=== PATIENT | male | born 1955 | race Caucasian/White ===

== ENCOUNTER 2016-07-18 10:48 | Observation (INO) | payer BC ==
--- NOTE | 2016-07-18 11:05 | EDM.PDOC ---
ED HPI GENERAL MEDICAL PROBLEM - General Chief Complaint: General Stated Complaint: SHAKY/VOMITING/SWEATING Time Seen by Provider: 07/18/16 10:50 Source of Information: Reports: Patient History Limitations: Reports: No Limitations - History of Present Illness INITIAL COMMENTS - FREE TEXT/NARRATIVE: According to patient he woke up today morning and and started to have sudden onset of severe headache. he was not doing any strenuous activity. He started to feel nauseous and had an episode of vomiting. The headache has not got any better, and rate 10/10,. Worse headache of his life. also has been having mild neck pain. Does complaints of dizziness. No weakness in the limbs , No tingling or numbness , no slurred speech. No altered sensorium or LOC. No chest pain or Shortness of breath. No trauma or injury to the head. He was brought in by EMT, Vitals are stable and his initial blood sugar was 141 and repeat blood sugar here is 152. EKG was in normal sinus rhythm. He does have fibromyalgia and on pain medications which he has taken today.Pt' s is driving and has his med list with her. Onset: Today Onset Date: 07/18/16 Onset Time: 08:00 Duration: Getting Worse Location: Reports: Head Quality: Reports: Ache Severity: Severe Improves with: Reports: None Worsens with: Reports: None Associated Symptoms: Reports: Diaphoresis, Nausea/Vomiting. Denies: Confusion, Chest Pain, Cough, Fever/Chills, Headaches, Rash, Seizure, Shortness of Breath, Syncope, Weakness ED ROS GENERAL - Review of Systems Review Of Systems: See Below Constitutional: Reports: Diaphoresis. Denies: Fever, Chills, Weakness HEENT: Denies: Contact Lenses, Dental Pain, Rhinitis, Sinus Problem, Throat Pain Respiratory: Denies: Shortness of Breath, Cough, Sputum Cardiovascular: Denies: Chest Pain, Blood Pressure Problem, Edema, Lightheadedness GI/Abdominal: Denies: Abdominal Pain, Constipation, Diarrhea, Nausea, Vomiting Musculoskeletal: Reports: Neck Pain, Muscle Pain (chronic from fibromyalgia), Muscle Stiffness (fibromyalgia). Denies: Joint Pain, Joint Swelling Skin: Denies: Pruritis, Rash Neurological: Reports: Dizziness, Headache. Denies: Confusion, Numbness, Paresthesia, Seizure, Syncope, Tingling, Trouble Speaking, Difficulty Walking, Weakness, Change in Speech, Gait Disturbance ED EXAM, GENERAL - Physical Exam Exam: See Below Exam Limited By: No Limitations General Appearance: Alert, WD/WN, Moderate Distress, Other (diaphoretic) Eye Exam: Bilateral Eye: EOMI, Normal Inspection, PERRL Ears: Normal External Exam, Normal Canal, Hearing Grossly Normal, Normal TMs Ear Exam: Bilateral Ear: Auricle Normal, Canal Normal, TM normal Nose: Normal Inspection, Normal Mucosa, No Blood Throat/Mouth: Normal Inspection, Normal Lips, Normal Teeth, Normal Gums, Normal Oropharynx, Normal Voice, No Airway Compromise Head: Atraumatic, Normocephalic Neck: Normal Inspection, Supple, Non-Tender, Full Range of Motion, Other (No neck rigidity, able to touch his chin to chest.) Respiratory/Chest: No Respiratory Distress, Lungs Clear, Normal Breath Sounds, No Accessory Muscle Use, Chest Non-Tender Cardiovascular: Normal Peripheral Pulses, Regular Rate, Rhythm, No Edema, No Gallop, No JVD, No Murmur, No Rub GI/Abdominal: Normal Bowel Sounds, Soft, Non-Tender, No Organomegaly, No Distention, No Abnormal Bruit, No Mass Extremities: Normal Inspection, Normal Range of Motion, Non-Tender, Normal Capillary Refill, No Pedal Edema Neurological: Alert, Oriented, CN II-XII Intact, Normal Cognition, Normal Reflexes, No Motor/Sensory Deficits, Other (Negative meningeal signs. No nystagmus) Psychiatric: Anxious EKG INTERPRETATION EKG Date: 07/18/16 Time: 10:50 Rhythm: NSR [place]: normal P-wave: present QRS: normal ST-T: normal QT: normal Course - Vital Signs Text/Narrative:: Pt's vitals are stable. his SPO2 of room air is 100%. his initial blood sugar was 141. repeat was 152. Also his EKG is in normal sinus rhythm. Neuro exam appears normal. He does not have acute meningeal signs. CBC, CMP, Troponins, CT head ordered. He is anxious and slightly hyperventilating reassured him. Ct head is negative for acute bleed or subarachanoid hemorrhage. Pt is still having nausea, S/l zofran 4mg given. Also IV has been inserted. His Labs are Back His CBC and CMP appear normal. His initial troponin is Negative. and his EKG is normal. he does not have any acute cardiac symptoms, but considering that he was diaphoretic on arrival, I do want to repeat his serial troponin. His episode of headache started at 6 Am today, Will repeat troponin at 3 Pm which is good 9 hrs from the episode. I did reevaluate patient once all the lab work and reports are back. He does c/ o dizziness when he moves his head. I did do a Quick head maneuver test. he does get Short episode over vertigo with lateral movement of the head at 30 degrees, which last for 6-10 secs. It does appear very much like acute viral labrynthitis. He did receive meclizine 25mg . Will admit him for Observation. if his second set of troponin is negative will discharge patient home. - Orders/Labs/Meds Orders: Active Orders 24 hr Category Date Time Status EKG Documentation Completion [RC] ASDIRECTED Care 07/18/16 10:53 Active Head wo Cont [CT] Stat Exams 07/18/16 10:53 Taken Sodium Chloride 0.9% [Saline Flush] Med 07/18/16 11:27 Active 10 ml FLUSH ASDIRECTED PRN Saline Lock Insert [OM.PC] Routine Oth 07/18/16 11:27 Ordered Medication Orders Sodium Chloride (Saline Flush) 10 ml FLUSH ASDIRECTED PRN PRN Reason: Keep Vein Open Last Admin: 07/18/16 11:40 Dose: 10 ml Labs: Laboratory Tests 07/18/16 07/18/16 07/18/16 Range/Units 11:00 11:00 11:00 WBC 6.2 (4.0-11.0) K/uL RBC 4.17 L (4.50-6.50) M/uL Hgb 13.3 (13.0-18.0) g/dL Hct 38.3 L (40.0-54.0) % MCV 92 (76-96) fL MCH 31.9 (27.0-32.0) pg MCHC 34.7 (31.0-35.0) g/dL RDW 12.7 (11.0-16.0) % Plt Count 257 (150-400) K/uL MPV 9.8 (6.0-10.0) fL Neut % (Auto) 62.1 (45.0-70.0) % Lymph % (Auto) 26.9 (20.0-40.0) % [place] % (Auto) 7.6 (3.0-10.0) % Eos % (Auto) 3.1 (1.0-5.0) % Baso % (Auto) 0.3 (0.0-0.5) % Neut # (Auto) 3.85 (2.00-7.50) K/uL Lymph # (Auto) 1.67 (1.50-4.00) K/uL [place] # (Auto) 0.47 (0.20-0.80) K/uL Eos # (Auto) 0.19 (0.04-0.40) K/uL Baso # (Auto) 0.02 (0.02-0.10) K/uL PT 9.7 (9.0-11.5) sec INR 0.9 L (1.0-3.5) APTT 21.6 L (27.0-35.0) SECONDS Sodium 135 L (136-145) mmol/L Potassium 4.2 (3.5-5.1) mmol/L Chloride 101 (98-107) mmol/L Carbon Dioxide 25.0 (21.0-32.0) mmol/L Anion Gap 13.2 (5.0-15.0) mmol/L BUN 13 (8-26) mg/dL Creatinine 0.84 (0.70-1.30) mg/dL Est Cr Clr Drug Dosing TNP Estimated GFR (MDRD) > 60 (>60) MLS/MIN BUN/Creatinine Ratio 15.5 (6-25) Glucose 169 H (74-100) mg/dL Calcium 8.9 (8.5-10.1) mg/dL Total Bilirubin 0.5 (0.0-1.0) mg/dL AST 31 (15-37) U/L ALT 28 (12-78) U/L Alkaline Phosphatase 96 (46-116) U/L Troponin I < 0.017 (0.000-0.060) ng/mL Total Protein 7.3 (6.4-8.2) g/dL Albumin 3.8 (3.4-5.0) g/dL Globulin 3.5 (2.2-4.2) g/dL Albumin/Globulin Ratio 1.1 (0.8-2.0) Meds: Medications Generic Name Dose Route Start Last Admin Trade Name Marina PRN Reason Stop Dose Admin Sodium Chloride 10 ml 07/18/16 11:27 07/18/16 11:40 Saline Flush FLUSH 10 ml ASDIRECTED PRN Administration Keep Vein Open Discontinued Medications Generic Name Dose Route Start Last Admin Trade Name Marina PRN Reason Stop Dose Admin Hydromorphone HCl 1 mg 07/18/16 11:46 07/18/16 11:53 Dilaudid IVPUSH 07/18/16 11:47 1 mg ONETIME ONE Administration Hydromorphone HCl Confirm 07/18/16 11:48 07/18/16 11:58 Dilaudid Administered 07/18/16 11:49 Not Given Dose 2 mg .ROUTE .STK-MED ONE Meclizine HCl 25 mg 07/18/16 11:49 07/18/16 11:52 Antivert PO 07/18/16 11:50 25 mg ONETIME ONE Administration Meclizine HCl Confirm 07/18/16 11:49 07/18/16 11:58 Antivert Administered 07/18/16 11:50 Not Given Dose 25 mg .ROUTE .STK-MED ONE Ondansetron HCl Confirm 07/18/16 11:25 Zofran Odt Administered 07/18/16 11:26 Dose 4 mg .ROUTE .STK-MED ONE Ondansetron HCl 4 mg 07/18/16 11:27 Zofran Odt PO 07/18/16 11:28 ONETIME ONE Departure - Departure Time of Disposition: 12:30 Disposition: Refer to Observation Condition: good Clinical Impression: Acute labyrinthitis, Dizziness - Discharge Information Forms: ED Department Discharge - Problem List & Annotations (1) Acute labyrinthitis SNOMED Code(s): 16517839 Code(s): H83.09 - LABYRINTHITIS, UNSPECIFIED EAR Status: Acute Current Visit: Yes (2) Dizziness SNOMED Code(s): 948925978, 640219022 Code(s): R42 - DIZZINESS AND GIDDINESS Status: Acute Current Visit: Yes - Problem List Review Problem List Initiated/Reviewed/Updated: Yes - My Orders Last 24 Hours: My Active Orders 07/18/16 10:53 EKG Documentation Completion [RC] ASDIRECTED Head wo Cont [CT] Stat 07/18/16 11:27 Sodium Chloride 0.9% [Saline Flush] 10 ml FLUSH ASDIRECTED PRN Saline Lock Insert [OM.PC] Routine - Assessment/Plan Admission H&P: Please use this note as an admission H&P Last 24 Hours: My Active Orders 07/18/16 10:53 EKG Documentation Completion [RC] ASDIRECTED Head wo Cont [CT] Stat 07/18/16 11:27 Sodium Chloride 0.9% [Saline Flush] 10 ml FLUSH ASDIRECTED PRN Saline Lock Insert [OM.PC] Routine Assessment:: Acute labrynthitis with dizziness. Plan: Pt's vitals are stable. his SPO2 of room air is 100%. his initial blood sugar was 141. repeat was 152. Also his EKG is in normal sinus rhythm. Neuro exam appears normal. He does not have acute meningeal signs. CBC, CMP, Troponins, CT head ordered. He is anxious and slightly hyperventilating reassured him. Ct head is negative for acute bleed or subarachanoid hemorrhage. Pt is still having nausea, S/l zofran 4mg given. Also IV has been inserted. His Labs are Back His CBC and CMP appear normal. His initial troponin is Negative. and his EKG is normal. he does not have any acute cardiac symptoms, but considering that he was diaphoretic on arrival, I do want to repeat his serial troponin. His episode of headache started at 6 Am today, Will repeat troponin at 3 Pm which is good 9 hrs from the episode. I did reevaluate patient once all the lab work and reports are back. He does c/ o dizziness when he moves his head. I did do a Quick head maneuver test. he does get Short episode over vertigo with lateral movement of the head at 30 degrees, which last for 6-10 secs. It does appear very much like acute viral labrynthitis. He did receive meclizine 25mg . Will admit him for Observation. if his second set of troponin is negative will discharge patient home.
[2016-07-18] MEDS ORDERED: Ondansetron 4 MG Tab.DIS ONE (11:25)
[2016-07-18] MEDS ORDERED: Ondansetron 4 MG Tab.DIS PO ONE (11:27)
[2016-07-18] MEDS ORDERED: Sodium Chloride 0.9% 10 ML Syringe FLUSH PRN (11:27)
[2016-07-18] MEDS ORDERED: HYDROmorphone 2 MG/ML Syringe IVPUSH ONE (11:46)
[2016-07-18] MEDS ORDERED: HYDROmorphone 2 MG/ML Syringe ONE (11:48)
--- NOTE | 2016-07-18 14:32 | EDM.PDOC ---
ED HPI GENERAL MEDICAL PROBLEM - General Chief Complaint: General Stated Complaint: SHAKY/VOMITING/SWEATING Time Seen by Provider: 07/18/16 10:55 Source of Information: Reports: Patient History Limitations: Reports: No Limitations - History of Present Illness INITIAL COMMENTS - FREE TEXT/NARRATIVE: According to patient he woke up today morning and and started to have sudden onset of severe headache. he was not doing any strenuous activity. He started to feel nauseous and had an episode of vomiting. The headache has not got any better, and rate 10/10,. Worse headache of his life. also has been having mild neck pain. Does complaints of dizziness. No weakness in the limbs , No tingling or numbness , no slurred speech. No altered sensorium or LOC. No chest pain or Shortness of breath. No trauma or injury to the head. He was brought in by EMT, Vitals are stable and his initial blood sugar was 141 and repeat blood sugar here is 152. EKG was in normal sinus rhythm. He does have fibromyalgia and on pain medications which he has taken today.Pt' s is driving and has his med list with her. Onset: Today Onset Date: 07/18/16 Onset Time: 08:00 Duration: Getting Worse Location: Reports: Head Quality: Reports: Ache Severity: Severe Improves with: Reports: None Worsens with: Reports: None Associated Symptoms: Reports: Diaphoresis, Nausea/Vomiting. Denies: Confusion, Chest Pain, Cough, Fever/Chills, Headaches, Rash, Seizure, Shortness of Breath, Syncope, Weakness ED EXAM, GENERAL - Physical Exam Free Text/Narrative:: According to patient he woke up today morning and and started to have sudden onset of severe headache. he was not doing any strenuous activity. He started to feel nauseous and had an episode of vomiting. The headache has not got any better, and rate 10/10,. Worse headache of his life. also has been having mild neck pain. Does complaints of dizziness. No weakness in the limbs , No tingling or numbness , no slurred speech. No altered sensorium or LOC. No chest pain or Shortness of breath. No trauma or injury to the head. He was brought in by EMT, Vitals are stable and his initial blood sugar was 141 and repeat blood sugar here is 152. EKG was in normal sinus rhythm. He does have fibromyalgia and on pain medications which he has taken today.Pt' s is driving and has his med list with her. Exam Limited By: No Limitations General Appearance: Alert, WD/WN, Moderate Distress, Other (diaphoretic) Ears: Normal External Exam, Normal Canal, Hearing Grossly Normal, Normal TMs Ear Exam: Bilateral Ear: Auricle Normal, Canal Normal, TM normal Nose: Normal Inspection, Normal Mucosa, No Blood Throat/Mouth: Normal Inspection, Normal Lips, Normal Teeth, Normal Gums, Normal Oropharynx, Normal Voice, No Airway Compromise Head: Atraumatic, Normocephalic Neck: Normal Inspection, Supple, Non-Tender, Full Range of Motion, Other (No neck rigidity, able to touch his chin to chest.) Respiratory/Chest: No Respiratory Distress, Lungs Clear, Normal Breath Sounds, No Accessory Muscle Use, Chest Non-Tender Cardiovascular: Normal Peripheral Pulses, Regular Rate, Rhythm, No Edema, No Gallop, No JVD, No Murmur, No Rub GI/Abdominal: Normal Bowel Sounds, Soft, Non-Tender, No Organomegaly, No Distention, No Abnormal Bruit, No Mass Extremities: Normal Inspection, Normal Range of Motion, Non-Tender, Normal Capillary Refill, No Pedal Edema Neurological: Alert, Oriented, CN II-XII Intact, Normal Cognition, Normal Reflexes, No Motor/Sensory Deficits, Other (Negative meningeal signs. No nystagmus) Psychiatric: Anxious Course - Orders/Labs/Meds Orders: Active Orders 24 hr Category Date Time Status Patient Status [ADT] Routine ADT 07/18/16 12:32 Active EKG Documentation Completion [RC] ASDIRECTED Care 07/18/16 10:53 Active Oxygen Therapy [RC] PRN Care 07/18/16 12:32 Active VTE/DVT Education [RC] Per Unit Routine Care 07/18/16 12:32 Active Vital Signs [RC] Q4H Care 07/18/16 12:32 Active Regular Diet [DIET] Diet 07/18/16 Dinner Ordered Head wo Cont [CT] Stat Exams 07/18/16 10:53 Taken TROPONIN I [CHEM] Routine Lab 07/18/16 15:00 Ordered Sodium Chloride 0.9% [Saline Flush] Med 07/18/16 11:27 Active 10 ml FLUSH ASDIRECTED PRN Saline Lock Insert [OM.PC] Routine Oth 07/18/16 11:27 Ordered Resuscitation Status Routine Resus Stat 07/18/16 12:32 Ordered Medication Orders Sodium Chloride (Saline Flush) 10 ml FLUSH ASDIRECTED PRN PRN Reason: Keep Vein Open Last Admin: 07/18/16 11:40 Dose: 10 ml Labs: Laboratory Tests 07/18/16 07/18/16 07/18/16 Range/Units 11:00 11:00 11:00 WBC 6.2 (4.0-11.0) K/uL RBC 4.17 L (4.50-6.50) M/uL Hgb 13.3 (13.0-18.0) g/dL Hct 38.3 L (40.0-54.0) % MCV 92 (76-96) fL MCH 31.9 (27.0-32.0) pg MCHC 34.7 (31.0-35.0) g/dL RDW 12.7 (11.0-16.0) % Plt Count 257 (150-400) K/uL MPV 9.8 (6.0-10.0) fL Neut % (Auto) 62.1 (45.0-70.0) % Lymph % (Auto) 26.9 (20.0-40.0) % [place] % (Auto) 7.6 (3.0-10.0) % Eos % (Auto) 3.1 (1.0-5.0) % Baso % (Auto) 0.3 (0.0-0.5) % Neut # (Auto) 3.85 (2.00-7.50) K/uL Lymph # (Auto) 1.67 (1.50-4.00) K/uL [place] # (Auto) 0.47 (0.20-0.80) K/uL Eos # (Auto) 0.19 (0.04-0.40) K/uL Baso # (Auto) 0.02 (0.02-0.10) K/uL PT 9.7 (9.0-11.5) sec INR 0.9 L (1.0-3.5) APTT 21.6 L (27.0-35.0) SECONDS Sodium 135 L (136-145) mmol/L Potassium 4.2 (3.5-5.1) mmol/L Chloride 101 (98-107) mmol/L Carbon Dioxide 25.0 (21.0-32.0) mmol/L Anion Gap 13.2 (5.0-15.0) mmol/L BUN 13 (8-26) mg/dL Creatinine 0.84 (0.70-1.30) mg/dL Est Cr Clr Drug Dosing TNP Estimated GFR (MDRD) > 60 (>60) MLS/MIN BUN/Creatinine Ratio 15.5 (6-25) Glucose 169 H (74-100) mg/dL Calcium 8.9 (8.5-10.1) mg/dL Total Bilirubin 0.5 (0.0-1.0) mg/dL AST 31 (15-37) U/L ALT 28 (12-78) U/L Alkaline Phosphatase 96 (46-116) U/L Troponin I < 0.017 (0.000-0.060) ng/mL Total Protein 7.3 (6.4-8.2) g/dL Albumin 3.8 (3.4-5.0) g/dL Globulin 3.5 (2.2-4.2) g/dL Albumin/Globulin Ratio 1.1 (0.8-2.0) Meds: Medications Generic Name Dose Route Start Last Admin Trade Name Freq PRN Reason Stop Dose Admin Sodium Chloride 10 ml 07/18/16 11:27 07/18/16 11:40 Saline Flush FLUSH 10 ml ASDIRECTED PRN Administration Keep Vein Open Discontinued Medications Generic Name Dose Route Start Last Admin Trade Name Freq PRN Reason Stop Dose Admin Hydromorphone HCl 1 mg 07/18/16 11:46 07/18/16 11:53 Dilaudid IVPUSH 07/18/16 11:47 1 mg ONETIME ONE Administration Hydromorphone HCl Confirm 07/18/16 11:48 07/18/16 11:58 Dilaudid Administered 07/18/16 11:49 Not Given Dose 2 mg .ROUTE .STK-MED ONE Meclizine HCl 25 mg 07/18/16 11:49 07/18/16 11:52 Antivert PO 07/18/16 11:50 25 mg ONETIME ONE Administration Meclizine HCl Confirm 07/18/16 11:49 07/18/16 11:58 Antivert Administered 07/18/16 11:50 Not Given Dose 25 mg .ROUTE .STK-MED ONE Ondansetron HCl Confirm 07/18/16 11:25 Zofran Odt Administered 07/18/16 11:26 Dose 4 mg .ROUTE .STK-MED ONE Ondansetron HCl 4 mg 07/18/16 11:27 Zofran Odt PO 07/18/16 11:28 ONETIME ONE Departure - Departure Disposition: Refer to Observation Condition: good Clinical Impression: Acute labyrinthitis, Dizziness - Discharge Information Referrals: PCP,None [Primary Care Provider] - Forms: ED Department Discharge - Problem List & Annotations (1) Acute labyrinthitis SNOMED Code(s): 84698270 Code(s): H83.09 - LABYRINTHITIS, UNSPECIFIED EAR Status: Acute Current Visit: Yes (2) Dizziness SNOMED Code(s): 561988651, 434893217 Code(s): R42 - DIZZINESS AND GIDDINESS Status: Acute Current Visit: Yes - My Orders Last 24 Hours: My Active Orders 07/18/16 10:53 EKG Documentation Completion [RC] ASDIRECTED Head wo Cont [CT] Stat 07/18/16 11:27 Sodium Chloride 0.9% [Saline Flush] 10 ml FLUSH ASDIRECTED PRN Saline Lock Insert [OM.PC] Routine 07/18/16 12:32 Patient Status [ADT] Routine Oxygen Therapy [RC] PRN VTE/DVT Education [RC] Per Unit Routine Vital Signs [RC] Q4H Resuscitation Status Routine 07/18/16 15:00 TROPONIN I [CHEM] Routine 07/18/16 Dinner Regular Diet [DIET] - Assessment/Plan Last 24 Hours: My Active Orders 07/18/16 10:53 EKG Documentation Completion [RC] ASDIRECTED Head wo Cont [CT] Stat 07/18/16 11:27 Sodium Chloride 0.9% [Saline Flush] 10 ml FLUSH ASDIRECTED PRN Saline Lock Insert [OM.PC] Routine 07/18/16 12:32 Patient Status [ADT] Routine Oxygen Therapy [RC] PRN VTE/DVT Education [RC] Per Unit Routine Vital Signs [RC] Q4H Resuscitation Status Routine 07/18/16 15:00 TROPONIN I [CHEM] Routine 07/18/16 Dinner Regular Diet [DIET]
[2016-07-18 19:14] VITALS: BP 129/80
--- NOTE | 2016-07-19 08:04 | CT ---
DATE OF SERVICE: 07/18/16 CLINICAL DATA: headache with neck pain UNENHANCED BRAIN CT: Multislice acquisition through the brain without IV contrast was performed. No priors. There are periventricular lucencies consistent with small vessel ischemic change. No masses or mass effect. No intracranial hemorrhage. No evidence of acute or subacute infarct. There is minimal mucosal thickening in the ethmoid sinuses consistent with chronic sinusitis. No osseous abnormalities. IMPRESSION: No acute intracranial abnormalities. [id number] [facility]
--- NOTE | 2016-07-19 12:00 | PCM.DCSUM1 ---
Discharge Summary - Hospital Course Free Text/Narrative:: Pt was admitted for observation. He has been feeling better. Slightly dizzy when he turns his head sided cyr. His repeat second set torponin done 9 hrs after the episode is negative. Pt and reassured that he does not have any acute cardiac injury. Also his CT head is negative. Headache improved significantly after dilaudid 1mg was given. He has mild short episode of vertigo with head movement.He has acute viral labrynthitis. I have started him on meclizine 25mg 23 times daily. Advised him not to drive until symptoms resolve. Also advised to followup with his Primary care provider early next week. Brief History: Pt has sudden onset of head ache, dizziness and vomiting started around 6 am today. Kindly see detailed H&P - Discharge Data Discharge Date: 07/18/16 Discharge Disposition: Home, Self-Care 01 Condition: Stable - Discharge Diagnosis/Problem(s) (1) Acute labyrinthitis SNOMED Code(s): 26473391 ICD Code: H83.09 - LABYRINTHITIS, UNSPECIFIED EAR Status: Acute (2) Dizziness SNOMED Code(s): 555596698, 948388676 ICD Code: R42 - DIZZINESS AND GIDDINESS Status: Acute - Patient Instructions Diet: Heart Healthy Diet Fluid Restriction: 1500 mL Activity: As Tolerated Driving: Do Not Drive Showering/Bathing: May Shower - Discharge Plan Home Medications: Home Meds Aspirin 81 mg PO DAILY 07/18/16 [History] Cyclobenzaprine [Flexeril] 10 mg PO BID 07/18/16 [History] DULoxetine [Cymbalta] 60 mg PO DAILY 07/18/16 [History] Lisinopril/Hydrochlorothiazide [Zestoretic 20-12.5 mg Tablet] 1 each PO DAILY [History] Multivit with Calcium,Iron,Min [Multivitamins [id number]] 1 each PO DAILY [History] Omeprazole 20 mg PO DAILY 07/18/16 [History] Turm/Ging/Deejay/Yuc/Alfonso/Desi/Hor [Tumersaid Tablet] 500 mg PO TID 07/18/16 [ History] busPIRone [Buspar] 10 mg PO BID 07/18/16 [History] Forms: ED Department Discharge Referrals: PCP,None [Primary Care Provider] - - Discharge Summary/Plan Comment DC Time >30 min.: Yes - General Info Date of Service: 07/18/16 Functional Status: Reports: pain controlled, tolerating diet, ambulating, urinating - Review of Systems General: Denies: Fever, Weakness HEENT: Denies: headaches, post nasal drip, sinus congestion, sore throat Pulmonary: Denies: shortness of breath, pleuritic chest pain, cough, hemoptysis , wheezing Cardiovascular: Denies: Chest Pain, Lightheadedness Gastrointestinal: Denies: Abdominal pain, Nausea, Vomiting Genitourinary: Denies: frequency, burning Musculoskeletal: Denies: joint pain, joint swelling Skin: Denies: pruritis, rash Neurological: Reports: Dizziness. Denies: Confusion, Headache, Numbness, Paresthesia, Seizure, Syncope, Tingling - Patient Data Vitals - Most Recent: Last Vital Signs Temp 96.5 F 07/18/16 12:32 Pulse 61 07/18/16 12:32 Resp 18 07/18/16 12:32 BP 129/80 07/18/16 12:32 Pulse Ox 100 07/18/16 12:32 Lab Results - Last 24 hrs: Laboratory Results - last 24 hr 07/18/16 Range/Units 14:37 Troponin I < 0.017 (0.000-0.060) ng/mL Med Orders - Current: Current Medications Discontinued Medications Hydromorphone HCl (Dilaudid) 1 mg IVPUSH ONETIME ONE Stop: 07/18/16 11:47 Last Admin: 07/18/16 11:53 Dose: 1 mg Hydromorphone HCl (Dilaudid) Confirm Administered Dose 2 mg .ROUTE .STK-MED ONE Stop: 07/18/16 11:49 Last Admin: 07/18/16 11:58 Dose: Not Given Meclizine HCl (Antivert) 25 mg PO ONETIME ONE Stop: 07/18/16 11:50 Last Admin: 07/18/16 11:52 Dose: 25 mg Meclizine HCl (Antivert) Confirm Administered Dose 25 mg .ROUTE .STK-MED ONE Stop: 07/18/16 11:50 Last Admin: 07/18/16 11:58 Dose: Not Given Ondansetron HCl (Zofran Odt) Confirm Administered Dose 4 mg .ROUTE .STK-MED ONE Stop: 07/18/16 11:26 Last Admin: 07/18/16 19:04 Dose: Not Given Ondansetron HCl (Zofran Odt) 4 mg PO ONETIME ONE Stop: 07/18/16 11:28 Last Admin: 07/18/16 11:30 Dose: 4 mg Sodium Chloride (Saline Flush) 10 ml FLUSH ASDIRECTED PRN PRN Reason: Keep Vein Open Last Admin: 07/18/16 11:40 Dose: 10 ml - Exam General: Reports: alert, oriented HEENT: Reports: Pupils equal, Pupils reactive, EOMI, Mucous membr. moist/pink Neck: Reports: supple Lungs: Reports: Clear to auscultation, Normal respiratory effort Cardiovascular: Reports: Regular Rate, Regular Rhythm Abdomen: Reports: bowel sounds present, soft, no tenderness, no distension Skin: Reports: warm, dry, intact Neurological: Reports: no new focal deficit Psy/Mental Status: Reports: alert, normal affect *Q Meaningful Use (DIS) - VTE *Q VTE Criteria *Q: - Stroke *Q Stroke Criteria *Q: - AMI *Q AMI Criteria *Q:
== END 2016-07-18 15:20 | disposition home or self-care (01) ==
LOC: LB.ED 10:48 → UNDOADMOB 12:10 → LB.MS 12:10 → UNDOADMOB 12:32 → UNDODISOB 15:20
PROVIDERS: ADMIT Family Medicine; ATTEND Family Medicine
DX: H83.09 Labyrinthitis, unspecified ear (principal); R42 Dizziness and giddiness; Z79.82 Long term (current) use of aspirin; Z79.899 Other long term (current) drug therapy
CPT/HCPCS: 36415; 70450; 80053; 84484; 85025; 85610; 85730; 93005; 96374; 99285; A0425; A0429; A9270; G0378; J1170; J7050